=== PATIENT | female | born 1965 | race Hispanic/Latino ===

== ENCOUNTER 2018-09-12 00:51 | Emergency (ER) | payer OTHER ==
[2018-09-12] MEDS ORDERED: ONDANSETRON ODT 4 MG TAB ONE (01:53)
[2018-09-12] MEDS ORDERED: DEXAMETHASONE SOD PHOSPHATE 10MG/ML 1ML VIAL ONE (01:53)
[2018-09-12] MEDS ORDERED: MORPHINE SULFATE 5 MG/ML VIAL ONE (01:54)
== END 2018-09-12 02:08 | disposition home or self-care (01) ==
LOC: EDH 00:51
CPT/HCPCS: 96372; J1100; J2270

== ENCOUNTER 2018-12-06 23:28 | Emergency (ER) | payer OTHER ==
[2018-12-06 23:57] LABS: BILIRUBIN,URINE Negative (NEGATIVE); COLOR,URINE Yellow (YELLOW); GLUCOSE, URINE (UA) Negative (NEGATIVE); KETONES,URINE Negative (NEGATIVE); LEUKOCYTE ESTERASE ,URINE Negative (NEGATIVE); NITRATE,URINE Negative (NEGATIVE); OCCULT BLOOD,URINE Large (NEGATIVE); PH,URINE 6.5 (5.0-8.0); PROTEIN,URINE Negative (NEGATIVE); UROBILINOGEN,URINE 0.2 mg/dL (0.2-1.0)
[2018-12-06 23:59] LABS: APPEARANCE,URINE SLIGHTLY CLOUDY (CLEAR)
[2018-12-07 00:04] LABS: BACTERIA,URINE Few /HPF (None Seen); SQUAMOUS EPITHELIAL CELL,UR 0-2 /HPF (0-2); WBC,URINE 0-1 /HPF (0-1)
[2018-12-07 00:26] LABS: BASOPHILS % (AUTO) 0.9 % (0.0-5.0); CREATININE 0.8 mg/dL (0.5-1.5); EOSINOPHILS % (AUTO) 0.4 % (0.0-8.0); HEMATOCRIT 40.7 % (36-48); LYMPHOCYTES % (AUTO) 16.3 % (21.0-51.0); MEAN CORPUSCULAR HGB CONC 33.3 g/dL (32.0-36.0); MEAN CORPUSCULAR VOLUME 96.2 fL (79-99); MONOCYTES % (AUTO) 9.1 % (3.0-13.0); NEUTROPHILS % (AUTO) 73.3 % (40.0-77.0); PLATELET COUNT (AUTO) 308 K/uL (130-400); POTASSIUM 3.1 mmol/L (3.5-5.1); RED BLOOD CELL COUNT(AUTO) 4.23 MIL/uL (4.00-5.50); RED CELL DISTRIBUTION WIDTH 13.1 % (11.0-15.5); WHITE BLOOD COUNT (AUTO) 11.4 K/uL (4.8-10.8)
[2018-12-07 00:32] LABS: BILIRUBIN,TOTAL 0.4 mg/dL (0.2-1.0)
[2018-12-07] MEDS ORDERED: FENTANYL CITRATE PF 50 MCG/1 ML 2ML VIAL ONE (01:06)
[2018-12-07] MEDS ORDERED: KETOROLAC TROMETHAMINE 30MG/ML ONE (02:09)
[2018-12-07] MEDS ORDERED: TAMSULOSIN HCL 0.4 MG CAP.ER.24H ONE (02:37)
[2018-12-07] MEDS ORDERED: POTASSIUM CHLORIDE 10% ELIXIR 20 MEQ/15 ML UDCUP ONE (02:47)
== END 2018-12-07 02:50 | disposition home or self-care (01) ==
LOC: EDH 23:28
DX: N20.2 Calculus of kidney with calculus of ureter (principal); E87.6 Hypokalemia; J45.909 Unspecified asthma, uncomplicated; M19.90 Unspecified osteoarthritis, unspecified site; E03.9 Hypothyroidism, unspecified; Z90.49 Acquired absence of other specified parts of digestive tract; Z79.899 Other long term (current) drug therapy
CPT/HCPCS: 36415; 74176; 80053; 81001; 83690; 85025; 96374; 96375; 99285; J1885; J3010

== ENCOUNTER 2019-02-25 04:12 | Emergency (ER) | payer OTHER ==
[2019-02-25] MEDS ORDERED: METOCLOPRAMIDE 10 MG/2 ML VIAL ONE (04:44)
[2019-02-25] MEDS ORDERED: SODIUM CHLORIDE 0.9% 1000ML 1,000 ML IV ONE (04:45)
[2019-02-25] MEDS ORDERED: DiphenhydrAMINE HCL 50 MG/ML VIAL ONE (05:27)
[2019-02-25 05:46] LABS: BASOPHILS % (AUTO) 0.4 % (0.0-5.0); EOSINOPHILS % (AUTO) 0.6 % (0.0-8.0); HEMATOCRIT 45.1 % (36-48); LYMPHOCYTES % (AUTO) 21.4 % (21.0-51.0); MEAN CORPUSCULAR HEMOGLOBIN 32.2 pg (27.0-33.0); MEAN CORPUSCULAR HGB CONC 33.6 g/dL (32.0-36.0); MEAN CORPUSCULAR VOLUME 95.8 fL (79-99); MONOCYTES % (AUTO) 10.1 % (3.0-13.0); NEUTROPHILS % (AUTO) 67.5 % (40.0-77.0); NUCLEATED RED BLOOD CELLS 0.1 % (0.0-0.19); PLATELET COUNT (AUTO) 316 K/uL (130-400); RED CELL DISTRIBUTION WIDTH 13.3 % (11.0-15.5); WHITE BLOOD COUNT (AUTO) 10.8 K/uL (4.8-10.8)
[2019-02-25] MEDS ORDERED: KETOROLAC TROMETHAMINE 15MG/ML ONE (05:56)
[2019-02-25 05:57] LABS: CREATININE 0.7 mg/dL (0.5-1.5); POTASSIUM 3.6 mmol/L (3.5-5.1)
[2019-02-25 06:39] LABS: APPEARANCE,URINE CLEAR (CLEAR); BILIRUBIN,URINE NEGATIVE (NEGATIVE); COLOR,URINE YELLOW (YELLOW); GLUCOSE, URINE (UA) NEGATIVE (NEGATIVE); KETONES,URINE 5 mg/dL (NEGATIVE); LEUKOCYTE ESTERASE ,URINE NEGATIVE (NEGATIVE); NITRATE,URINE NEGATIVE (NEGATIVE); OCCULT BLOOD,URINE NEGATIVE (NEGATIVE); PH,URINE 7.5 (5.0-8.0); PROTEIN,URINE NEGATIVE (NEGATIVE); UROBILINOGEN,URINE 0.2 mg/dL (0.2-1.0)
[2019-02-25 06:48] LABS: AMPHET/METH SCREEN,URINE NEGATIVE (NEGATIVE); BARBITURATE SCREEN, URINE POSITIVE (NEGATIVE); BENZODIAZEPINES SCREEN,URINE NEGATIVE (NEGATIVE); CANNABINOID SCREEN,URINE NEGATIVE (NEGATIVE); COCAINE SCREEN,URINE NEGATIVE (NEGATIVE); OPIATE SCREEN,URINE NEGATIVE (NEGATIVE); PHENCYCLIDINE SCREEN,URINE NEGATIVE (NEGATIVE)
[2019-02-25 06:51] LABS: BACTERIA,URINE Few /HPF (None Seen); RBC,URINE 0-1 /HPF (0-1); WBC,URINE 0-1 /HPF (0-1)
== END 2019-02-25 07:01 | disposition home or self-care (01) ==
LOC: EDH 04:12
DX: G43.909 Migraine, unspecified, not intractable, without status migrainosus (principal); J45.909 Unspecified asthma, uncomplicated; E03.9 Hypothyroidism, unspecified; Z90.49 Acquired absence of other specified parts of digestive tract; Z88.1 Allergy status to other antibiotic agents; Z79.899 Other long term (current) drug therapy
CPT/HCPCS: 36415; 70450; 80048; 80305; 81001; 84443; 85025; 96374; 96375; 99285; J1200; J1885; J2765; J7030

== ENCOUNTER → 2020-01-11 | Outpatient (CLI) | payer OTHER | END | disposition home or self-care (01) | LOC: RAH 01-10 10:44 | PROVIDERS: ATTEND Physical Medicine & Rehabilitation | DX: M47.816 Spondylosis without myelopathy or radiculopathy, lumbar region (principal); M47.815 Spondylosis without myelopathy or radiculopathy, thoracolumbar region; M48.061 Spinal stenosis, lumbar region without neurogenic claudication; M48.05 Spinal stenosis, thoracolumbar region; Z90.49 Acquired absence of other specified parts of digestive tract | CPT/HCPCS: 72082; 72110 ==

== ENCOUNTER 2021-11-13 07:47 | Inpatient (IN) | payer BC, OTHER ==
[~2021-11-13] VITALS: Ht 157.5 cm; Wt 38.9 kg
[2021-11-13 08:16] LABS: BASOPHILS % (AUTO) 0.4 % (0.0-5.0); HEMATOCRIT 36.6 % (36-48); MEAN CORPUSCULAR HEMOGLOBIN 32.8 pg (27.0-33.0); MEAN CORPUSCULAR VOLUME 93.8 fL (79-99); MONOCYTES % (AUTO) 12.4 % (3.0-13.0); NEUTROPHILS % (AUTO) 71.6 % (40.0-77.0); PLATELET COUNT (AUTO) 214 K/uL (130-400); RED CELL DISTRIBUTION WIDTH 12.6 % (11.0-15.5); WHITE BLOOD COUNT (AUTO) 5.3 K/uL (4.8-10.8)
[2021-11-13] MEDS ORDERED: 0.9%NACL 1000ML 1,000 ML IV SCH (08:30)
[2021-11-13 08:49] LABS: ALBUMIN 3.2 g/dL (3.5-5.0); BILIRUBIN,TOTAL 0.7 mg/dL (0.2-1.0); CREATININE 0.4 mg/dL (0.5-1.5); MAGNESIUM 1.7 mg/dL (1.80-2.40); POTASSIUM 3.3 mmol/L (3.5-5.1); THYROID STIMULATING HORMONE 0.05 uIU/mL (0.36-3.74); TOTAL PROTEIN, SERUM 7.4 g/dL (6.0-8.3)
[2021-11-13] MEDS ORDERED: FOLIC ACID IV SCH ×5 (09:00)
[2021-11-13] MEDS ORDERED: [UNRECOGNIZED DRUG - OTHER] IV SCH ×5 (09:00)
[2021-11-13] MEDS ORDERED: THIAMINE HCL IV SCH ×5 (09:00)
[2021-11-13] MEDS ORDERED: M V I IV SCH ×5 (09:00)
[2021-11-13 09:13] LABS: APPEARANCE,URINE Clear (CLEAR); BILIRUBIN,URINE Negative (NEGATIVE); COLOR,URINE Dark Yellow (YELLOW); GLUCOSE, URINE (UA) Negative (NEGATIVE); KETONES,URINE 40 mg/dL (NEGATIVE); LEUKOCYTE ESTERASE ,URINE Trace (NEGATIVE); NITRATE,URINE Negative (NEGATIVE); OCCULT BLOOD,URINE Negative (NEGATIVE); PROTEIN,URINE Trace mg/dL (NEGATIVE)
[2021-11-13 09:15] LABS: B-TYPE NATRIURETIC PEPTIDE 12 pg/mL (0-100)
[2021-11-13 09:30] LABS: RBC,URINE 0-1 /HPF (0-1)
[2021-11-13 09:31] LABS: BACTERIA,URINE Rare /HPF (None Seen); SQUAMOUS EPITHELIAL CELL,UR Rare /HPF (0-2)
[2021-11-13 09:56] LABS: AMPHET/METH SCREEN,URINE NEGATIVE (NEGATIVE); BARBITURATE SCREEN, URINE NEGATIVE (NEGATIVE); BENZODIAZEPINES SCREEN,URINE NEGATIVE (NEGATIVE); CANNABINOID SCREEN,URINE NEGATIVE (NEGATIVE); COCAINE SCREEN,URINE NEGATIVE (NEGATIVE); OPIATE SCREEN,URINE NEGATIVE (NEGATIVE); PHENCYCLIDINE SCREEN,URINE NEGATIVE (NEGATIVE)
[2021-11-13] MEDS ORDERED: IOHEXOL-350 75 ML VIAL IV ONE (10:14)
[2021-11-13] MEDS ORDERED: LEVO75CA5 PO (11:26)
[2021-11-13 22:50] VITALS: BP 129/81
[2021-11-14] MEDS: KCL 20 MEQ ERTAB PO PRN (01:55)
[2021-11-14] MEDS: ACETAMINOPHEN 325 MG TAB PO PRN (03:39)
[2021-11-14 04:00] VITALS: BP 104/66
[2021-11-14 05:00] LABS: BASOPHILS % (AUTO) 0.2 % (0.0-5.0); HEMATOCRIT 31.9 % (36-48); LYMPHOCYTES % (AUTO) 16.3 % (21.0-51.0); MEAN CORPUSCULAR HEMOGLOBIN 31.8 pg (27.0-33.0); MEAN CORPUSCULAR HGB CONC 33.5 g/dL (32.0-36.0); MEAN CORPUSCULAR VOLUME 94.7 fL (79-99); MONOCYTES % (AUTO) 12.7 % (3.0-13.0); PLATELET COUNT (AUTO) 209 K/uL (130-400); RED BLOOD CELL COUNT(AUTO) 3.37 MIL/uL (4.00-5.50); RED CELL DISTRIBUTION WIDTH 12.8 % (11.0-15.5); WHITE BLOOD COUNT (AUTO) 4.8 K/uL (4.8-10.8)
[2021-11-14 05:25] LABS: ALBUMIN 2.6 g/dL (3.5-5.0); BILIRUBIN,TOTAL 0.7 mg/dL (0.2-1.0); CREATININE 0.3 mg/dL (0.5-1.5); MAGNESIUM 1.5 mg/dL (1.80-2.40); TOTAL PROTEIN, SERUM 6.2 g/dL (6.0-8.3)
[2021-11-14 05:26] LABS: POTASSIUM 2.9 mmol/L (3.5-5.1)
[2021-11-14] MEDS: POTASSIUM CHLORIDE 20MEQ/100ML 100 ML IV PRN (06:48)
[2021-11-14] MEDS: LIDOCAINE HCL-MPF 1% 2ML VIAL IJ PRN (06:48)
[2021-11-14 07:30] VITALS: BP 107/72
[2021-11-14] MEDS ORDERED: GADOTERATE MEGLUMINE 10 MMOL/20 ML VIAL IV ONE (07:49)
[2021-11-14] MEDS: PANTOPRAZOLE 40 MG TAB DR PO SCH (08:42)
[2021-11-14] MEDS: ENOXAPARIN SODIUM 40 MG/0.4 ML SYRINGE SQ SCH (08:43)
[2021-11-14 11:00] VITALS: BP 115/74
[2021-11-14] MEDS: POTASSIUM CHLORIDE 10% ELIXIR 20 MEQ/15 ML UDCUP PO PRN (11:16)
[2021-11-14 16:00] VITALS: BP 110/73
[2021-11-14 19:00] VITALS: BP 127/58
[2021-11-14 19:58] LABS: GLUCOSE, CSF 29 mg/dL (40-70)
[2021-11-14 20:15] LABS: TOTAL PROTEIN, CSF 161 mg/dL (15-45)
[2021-11-14 21:17] LABS: APPEARANCE,CSF CLEAR (CLEAR); COLOR,CSF COLORLESS (COLORLESS); CSF TOTAL VOLUME 1.5 mL; CSF TUBE NUMBER TUBE NO.1; WHITE BLOOD CELL1,CSF 2 CMM (0-5)
[2021-11-14 21:18] LABS: APPEARANCE2,CSF CLEAR (CLEAR); COLOR2,CSF COLORLESS (COLORLESS); CSF 2ND TUBE NUMBER TUBE NO.2; RED BLOOD CELL1,CSF 232 CMM (0-0)
[2021-11-15] VITALS: BP 112/80
[2021-11-15] MEDS: ACETAMINOPHEN 325 MG TAB PO PRN (01:31)
[2021-11-15 04:00] VITALS: BP 104/69
[2021-11-15 08:00] VITALS: BP 97/70
[2021-11-15 08:39] LABS: BASOPHILS % (AUTO) 0.4 % (0.0-5.0); EOSINOPHILS % (AUTO) 0.4 % (0.0-8.0); HEMATOCRIT 33.7 % (36-48); LYMPHOCYTES % (AUTO) 19.6 % (21.0-51.0); MEAN CORPUSCULAR HEMOGLOBIN 32.7 pg (27.0-33.0); MEAN CORPUSCULAR HGB CONC 33.8 g/dL (32.0-36.0); MEAN CORPUSCULAR VOLUME 96.6 fL (79-99); MONOCYTES % (AUTO) 11.8 % (3.0-13.0); NEUTROPHILS % (AUTO) 67.2 % (40.0-77.0); PLATELET COUNT (AUTO) 243 K/uL (130-400); RED BLOOD CELL COUNT(AUTO) 3.49 MIL/uL (4.00-5.50); WHITE BLOOD COUNT (AUTO) 5.2 K/uL (4.8-10.8)
[2021-11-15 09:14] LABS: CREATININE 0.4 mg/dL (0.5-1.5); MAGNESIUM 1.7 mg/dL (1.80-2.40); PHOSPHORUS 2.5 mg/dL (2.5-4.9); POTASSIUM 3.7 mmol/L (3.5-5.1)
[2021-11-15] MEDS: PANTOPRAZOLE 40 MG TAB DR PO SCH (09:40)
[2021-11-15] MEDS: ENOXAPARIN SODIUM 40 MG/0.4 ML SYRINGE SQ SCH (09:40)
[2021-11-15] MEDS: MAGNESIUM OXIDE 400 MG TABLET PO SCH (09:40)
[2021-11-15] MEDS: CYANOCOBALAMIN (VITAMIN B-12) 1,000 MCG TABLET PO SCH (09:40)
[2021-11-15] MEDS: DRONABINOL 2.5 MG CAP PO SCH (09:40)
[2021-11-15 09:44] LABS: ERYTHROCYTE SEDIMENTATION RATE 30 MM/HR (0-30)
[2021-11-15 11:49] VITALS: BP 107/73
[2021-11-15 15:38] VITALS: BP 115/82
[2021-11-15] MEDS ORDERED: IOHEXOL 350 MG/ML 100ML INFUS..BTL IV ONE (19:02)
[2021-11-15 20:00] VITALS: BP 124/84
[2021-11-16] VITALS: BP_SYST 116; BP_SYST 121; BP_DIAS 78; BP_DIAS 91
[2021-11-16] MEDS: ACETAMINOPHEN 325 MG TAB PO PRN (03:57)
[2021-11-16 04:00] VITALS: BP 97/66
[2021-11-16 05:19] LABS: BASOPHILS % (AUTO) 0.5 % (0.0-5.0); EOSINOPHILS % (AUTO) 0.4 % (0.0-8.0); HEMATOCRIT 33.2 % (36-48); LYMPHOCYTES % (AUTO) 14.8 % (21.0-51.0); MEAN CORPUSCULAR HEMOGLOBIN 31.7 pg (27.0-33.0); MEAN CORPUSCULAR HGB CONC 33.7 g/dL (32.0-36.0); MEAN CORPUSCULAR VOLUME 94.1 fL (79-99); MONOCYTES % (AUTO) 11.4 % (3.0-13.0); PLATELET COUNT (AUTO) 241 K/uL (130-400); RED BLOOD CELL COUNT(AUTO) 3.53 MIL/uL (4.00-5.50); WHITE BLOOD COUNT (AUTO) 5.6 K/uL (4.8-10.8)
[2021-11-16 05:39] LABS: CREATININE 0.4 mg/dL (0.5-1.5); MAGNESIUM 1.5 mg/dL (1.80-2.40); POTASSIUM 3.2 mmol/L (3.5-5.1)
[2021-11-16] MEDS: POTASSIUM CHLORIDE 10% ELIXIR 20 MEQ/15 ML UDCUP PO PRN ×2 (05:47→10:56)
[2021-11-16] MEDS: MAGNESIUM 2GM PREMIX 50ML 50 ML IV SCH (05:47)
[2021-11-16] MEDS ORDERED: LEVOTHYROXINE 50 MCG TABLET PO SCH (06:00)
[2021-11-16] MEDS ORDERED: LEVOTHYROXINE 75 MCG TABLET PO SCH (07:30)
[2021-11-16 08:00] VITALS: BP 116/81
[2021-11-16] MEDS: MAGNESIUM OXIDE 400 MG TABLET PO SCH (10:55)
[2021-11-16] MEDS: DRONABINOL 2.5 MG CAP PO SCH (10:55)
[2021-11-16] MEDS: PANTOPRAZOLE 40 MG TAB DR PO SCH (10:55)
[2021-11-16] MEDS: CYANOCOBALAMIN (VITAMIN B-12) 1,000 MCG TABLET PO SCH (10:55)
[2021-11-16] MEDS: ENOXAPARIN SODIUM 40 MG/0.4 ML SYRINGE SQ SCH (10:56)
[2021-11-16 12:00] VITALS: BP 101/70
[2021-11-16 16:00] VITALS: BP 104/68
[2021-11-16 20:00] VITALS: BP 117/81
[2021-11-17] VITALS: BP 121/78
[2021-11-17 04:00] VITALS: BP 115/75
[2021-11-17 04:38] LABS: BASOPHILS % (AUTO) 0.4 % (0.0-5.0); EOSINOPHILS % (AUTO) 1.3 % (0.0-8.0); HEMATOCRIT 32.6 % (36-48); LYMPHOCYTES % (AUTO) 20.3 % (21.0-51.0); MEAN CORPUSCULAR HEMOGLOBIN 31.8 pg (27.0-33.0); MEAN CORPUSCULAR HGB CONC 33.1 g/dL (32.0-36.0); MEAN CORPUSCULAR VOLUME 95.9 fL (79-99); MONOCYTES % (AUTO) 11.7 % (3.0-13.0); NEUTROPHILS % (AUTO) 65.3 % (40.0-77.0); PLATELET COUNT (AUTO) 236 K/uL (130-400); RED CELL DISTRIBUTION WIDTH 12.9 % (11.0-15.5); WHITE BLOOD COUNT (AUTO) 5.2 K/uL (4.8-10.8)
[2021-11-17 04:45] LABS: ALBUMIN 2.6 g/dL (3.5-5.0); BILIRUBIN,TOTAL 0.5 mg/dL (0.2-1.0); CREATININE 0.3 mg/dL (0.5-1.5); MAGNESIUM 1.8 mg/dL (1.80-2.40); TOTAL PROTEIN, SERUM 6.3 g/dL (6.0-8.3)
[2021-11-17] MEDS: MAGNESIUM 2GM PREMIX 50ML 50 ML IV SCH (05:17)
[2021-11-17 08:00] VITALS: BP 113/75
[2021-11-17] MEDS: ENOXAPARIN SODIUM 40 MG/0.4 ML SYRINGE SQ SCH (09:18)
[2021-11-17] MEDS: CYANOCOBALAMIN (VITAMIN B-12) 1,000 MCG TABLET PO SCH (09:19)
[2021-11-17] MEDS: PANTOPRAZOLE 40 MG TAB DR PO SCH (09:19)
[2021-11-17] MEDS: MAGNESIUM OXIDE 400 MG TABLET PO SCH (09:19)
[2021-11-17] MEDS: DRONABINOL 2.5 MG CAP PO SCH (09:19)
[2021-11-17 11:50] VITALS: BP 96/70
[2021-11-17 16:00] VITALS: BP 114/77
[2021-11-17 20:00] VITALS: BP 118/92
[2021-11-18] VITALS (8 sets, daily range): BP systolic 94–150; BP diastolic 66–89
[2021-11-18 04:56] LABS: BASOPHILS % (AUTO) 0.3 % (0.0-5.0); EOSINOPHILS % (AUTO) 1.4 % (0.0-8.0); HEMATOCRIT 32.5 % (36-48); LYMPHOCYTES % (AUTO) 21.8 % (21.0-51.0); MEAN CORPUSCULAR HEMOGLOBIN 32.5 pg (27.0-33.0); MEAN CORPUSCULAR HGB CONC 33.5 g/dL (32.0-36.0); MONOCYTES % (AUTO) 13.6 % (3.0-13.0); NEUTROPHILS % (AUTO) 61.9 % (40.0-77.0); PLATELET COUNT (AUTO) 247 K/uL (130-400); RED BLOOD CELL COUNT(AUTO) 3.35 MIL/uL (4.00-5.50); RED CELL DISTRIBUTION WIDTH 12.9 % (11.0-15.5); WHITE BLOOD COUNT (AUTO) 5.8 K/uL (4.8-10.8)
[2021-11-18 05:13] LABS: ALBUMIN 2.6 g/dL (3.5-5.0); BILIRUBIN,TOTAL 0.5 mg/dL (0.2-1.0); CREATININE 0.4 mg/dL (0.5-1.5); MAGNESIUM 2.1 mg/dL (1.80-2.40); POTASSIUM 3.6 mmol/L (3.5-5.1); TOTAL PROTEIN, SERUM 6.4 g/dL (6.0-8.3)
[2021-11-18] MEDS: ENOXAPARIN SODIUM 40 MG/0.4 ML SYRINGE SQ SCH (08:02)
[2021-11-18] MEDS: CYANOCOBALAMIN (VITAMIN B-12) 1,000 MCG TABLET PO SCH (08:30)
[2021-11-18] MEDS: MAGNESIUM OXIDE 400 MG TABLET PO SCH (08:30)
[2021-11-18] MEDS: PANTOPRAZOLE 40 MG TAB DR PO SCH (08:30)
[2021-11-18] MEDS: DRONABINOL 2.5 MG CAP PO SCH (09:45)
[2021-11-18] MEDS ORDERED: GADOTERATE MEGLUMINE 10 MMOL/20 ML VIAL IV ONE (13:33)
[2021-11-19] VITALS (13 sets, daily range): BP systolic 94–169; BP diastolic 67–91
[2021-11-19 03:54] LABS: HEMATOCRIT 32.2 % (36-48); MEAN CORPUSCULAR HEMOGLOBIN 32.1 pg (27.0-33.0); MEAN CORPUSCULAR HGB CONC 33.5 g/dL (32.0-36.0); MEAN CORPUSCULAR VOLUME 95.8 fL (79-99); RED BLOOD CELL COUNT(AUTO) 3.36 MIL/uL (4.00-5.50); RED CELL DISTRIBUTION WIDTH 12.9 % (11.0-15.5); WHITE BLOOD COUNT (AUTO) 5.2 K/uL (4.8-10.8)
[2021-11-19 04:11] LABS: CREATININE 0.4 mg/dL (0.5-1.5); POTASSIUM 3.1 mmol/L (3.5-5.1)
[2021-11-19] MEDS: POTASSIUM CHLORIDE 20MEQ/100ML 100 ML IV PRN ×2 (05:01→08:12)
[2021-11-19] MEDS: LIDOCAINE HCL-MPF 1% 2ML VIAL IJ PRN ×2 (05:02→08:12)
[2021-11-19] MEDS: ENOXAPARIN SODIUM 40 MG/0.4 ML SYRINGE SQ SCH (07:25)
[2021-11-19] MEDS: MAGNESIUM OXIDE 400 MG TABLET PO SCH ×2 (08:03→10:13)
[2021-11-19] MEDS: DRONABINOL 2.5 MG CAP PO SCH ×2 (08:03→10:13)
[2021-11-19] MEDS: CYANOCOBALAMIN (VITAMIN B-12) 1,000 MCG TABLET PO SCH (08:06)
[2021-11-19] MEDS: PANTOPRAZOLE 40 MG TAB DR PO SCH (08:06)
[2021-11-19 08:45] LABS: INR 1.15 (0.85-1.15); PROTHROMBIN TIME 12.4 SEC (9.6-11.6)
[2021-11-19 08:46] LABS: PARTIAL THROMBOPLASTIN TIME 31.5 SEC (26.3-35.5)
[2021-11-19] MEDS: ACETAMINOPHEN 325 MG TAB PO PRN (10:12)
[2021-11-19] MEDS ORDERED: IOPAMIDOL 10 ML VIAL ONE (15:09)
[2021-11-20 03:08] VITALS: BP 149/96
[2021-11-20 05:18] LABS: HEMATOCRIT 32.4 % (36-48); MEAN CORPUSCULAR HEMOGLOBIN 33.2 pg (27.0-33.0); MEAN CORPUSCULAR HGB CONC 34.9 g/dL (32.0-36.0); MEAN CORPUSCULAR VOLUME 95.3 fL (79-99); RED BLOOD CELL COUNT(AUTO) 3.4 MIL/uL (4.00-5.50); RED CELL DISTRIBUTION WIDTH 12.9 % (11.0-15.5); WHITE BLOOD COUNT (AUTO) 4.5 K/uL (4.8-10.8)
[2021-11-20 05:31] LABS: CREATININE 0.4 mg/dL (0.5-1.5); POTASSIUM 3.8 mmol/L (3.5-5.1)
[2021-11-20 08:10] VITALS: BP 113/82
[2021-11-20] MEDS: MAGNESIUM OXIDE 400 MG TABLET PO SCH (08:49)
[2021-11-20] MEDS: PANTOPRAZOLE 40 MG TAB DR PO SCH (08:49)
[2021-11-20] MEDS: ENOXAPARIN SODIUM 40 MG/0.4 ML SYRINGE SQ SCH (08:49)
[2021-11-20] MEDS: DRONABINOL 2.5 MG CAP PO SCH (08:49)
[2021-11-20 12:17] VITALS: BP 107/76
[2021-11-20] MEDS: ACETAMINOPHEN 325 MG TAB PO PRN (14:27)
[2021-11-20 17:37] VITALS: BP 101/66
[2021-11-20 20:00] VITALS: BP 135/91
[2021-11-21] VITALS: BP 110/77
[2021-11-21 04:00] VITALS: BP 122/86
[2021-11-21 05:03] LABS: HEMATOCRIT 33.5 % (36-48); MEAN CORPUSCULAR HEMOGLOBIN 31.4 pg (27.0-33.0); MEAN CORPUSCULAR HGB CONC 33.1 g/dL (32.0-36.0); MEAN CORPUSCULAR VOLUME 94.9 fL (79-99); RED BLOOD CELL COUNT(AUTO) 3.53 MIL/uL (4.00-5.50); RED CELL DISTRIBUTION WIDTH 12.7 % (11.0-15.5); WHITE BLOOD COUNT (AUTO) 4.7 K/uL (4.8-10.8)
[2021-11-21 05:08] LABS: ALBUMIN 2.8 g/dL (3.5-5.0); CREATININE 0.3 mg/dL (0.5-1.5); MAGNESIUM 1.9 mg/dL (1.80-2.40); POTASSIUM 3.8 mmol/L (3.5-5.1)
[2021-11-21 08:15] VITALS: BP 102/79
[2021-11-21] MEDS: MAGNESIUM OXIDE 400 MG TABLET PO SCH (08:49)
[2021-11-21] MEDS: PANTOPRAZOLE 40 MG TAB DR PO SCH (08:49)
[2021-11-21] MEDS: ENOXAPARIN SODIUM 40 MG/0.4 ML SYRINGE SQ SCH (08:49)
[2021-11-21] MEDS: DRONABINOL 2.5 MG CAP PO SCH (08:50)
[2021-11-21] MEDS: ACETAMINOPHEN 325 MG TAB PO PRN (08:54)
[2021-11-21 12:15] VITALS: BP 99/71
[2021-11-21 16:55] VITALS: BP 156/106
[2021-11-21 20:00] VITALS: BP 122/90
[2021-11-22] VITALS: BP 115/86
[2021-11-22 04:00] VITALS: BP 112/76
[2021-11-22 05:22] LABS: HEMATOCRIT 34.8 % (36-48); MEAN CORPUSCULAR HEMOGLOBIN 32.4 pg (27.0-33.0); MEAN CORPUSCULAR HGB CONC 33.9 g/dL (32.0-36.0); MEAN CORPUSCULAR VOLUME 95.6 fL (79-99); RED BLOOD CELL COUNT(AUTO) 3.64 MIL/uL (4.00-5.50); RED CELL DISTRIBUTION WIDTH 12.7 % (11.0-15.5); WHITE BLOOD COUNT (AUTO) 5.8 K/uL (4.8-10.8)
[2021-11-22 05:42] LABS: CREATININE 0.3 mg/dL (0.5-1.5); POTASSIUM 3.7 mmol/L (3.5-5.1)
[2021-11-22 07:30] VITALS: BP 95/74
[2021-11-22] MEDS: MAGNESIUM OXIDE 400 MG TABLET PO SCH (09:00)
[2021-11-22] MEDS: ENOXAPARIN SODIUM 40 MG/0.4 ML SYRINGE SQ SCH (09:00)
[2021-11-22] MEDS: PANTOPRAZOLE 40 MG TAB DR PO SCH (09:00)
[2021-11-22 11:00] VITALS: BP 125/99
[2021-11-22 16:00] VITALS: BP 102/66
[2021-11-22 20:00] VITALS: BP 129/88
[2021-11-23] VITALS: BP 122/88
[2021-11-23 04:00] VITALS: BP 107/75
[2021-11-23 05:09] LABS: HEMATOCRIT 35.8 % (36-48); MEAN CORPUSCULAR HEMOGLOBIN 31.6 pg (27.0-33.0); MEAN CORPUSCULAR VOLUME 95.7 fL (79-99); RED BLOOD CELL COUNT(AUTO) 3.74 MIL/uL (4.00-5.50); RED CELL DISTRIBUTION WIDTH 12.6 % (11.0-15.5); WHITE BLOOD COUNT (AUTO) 6.3 K/uL (4.8-10.8)
[2021-11-23 05:20] LABS: INR 1.15 (0.85-1.15); PROTHROMBIN TIME 12.4 SEC (9.6-11.6)
[2021-11-23 05:22] LABS: ALBUMIN 2.9 g/dL (3.5-5.0); CREATININE 0.5 mg/dL (0.5-1.5); POTASSIUM 3.8 mmol/L (3.5-5.1)
[2021-11-23 08:00] VITALS: BP 122/78
[2021-11-23] MEDS: MAGNESIUM OXIDE 400 MG TABLET PO SCH (08:51)
[2021-11-23] MEDS: POTASSIUM CHLORIDE 10% ELIXIR 20 MEQ/15 ML UDCUP PO PRN (08:51)
[2021-11-23] MEDS: ENOXAPARIN SODIUM 40 MG/0.4 ML SYRINGE SQ SCH (08:51)
[2021-11-23] MEDS: PANTOPRAZOLE 40 MG TAB DR PO SCH (08:51)
[2021-11-23] MEDS: KCL 20 MEQ ERTAB PO PRN (11:49)
[2021-11-23 12:00] VITALS: BP 95/63
[2021-11-23 16:00] VITALS: BP 108/65
[2021-11-23] MEDS ORDERED: CLINIMIX-E 5%AA /D15%W 2000ML 2,000 ML IV SCH (17:00)
[2021-11-23] MEDS ORDERED: PHARMACY COMMUNICATION MISC SCH (17:00)
[2021-11-23 20:02] VITALS: BP 98/65
[2021-11-24] VITALS: BP 96/73
[2021-11-24 04:00] VITALS: BP 91/64
[2021-11-24] MEDS: ACETAMINOPHEN 325 MG TAB PO PRN ×2 (04:25→15:17)
[2021-11-24 05:16] LABS: HEMATOCRIT 33.8 % (36-48); MEAN CORPUSCULAR HEMOGLOBIN 32.9 pg (27.0-33.0); MEAN CORPUSCULAR HGB CONC 34.6 g/dL (32.0-36.0); MEAN CORPUSCULAR VOLUME 94.9 fL (79-99); RED BLOOD CELL COUNT(AUTO) 3.56 MIL/uL (4.00-5.50); RED CELL DISTRIBUTION WIDTH 12.5 % (11.0-15.5); WHITE BLOOD COUNT (AUTO) 8.6 K/uL (4.8-10.8)
[2021-11-24 05:32] LABS: ALBUMIN 2.6 g/dL (3.5-5.0); BILIRUBIN,TOTAL 0.4 mg/dL (0.2-1.0); CREATININE 0.4 mg/dL (0.5-1.5); MAGNESIUM 1.8 mg/dL (1.80-2.40); PHOSPHORUS 1.7 mg/dL (2.5-4.9); POTASSIUM 3.3 mmol/L (3.5-5.1); TOTAL PROTEIN, SERUM 6.6 g/dL (6.0-8.3)
[2021-11-24] MEDS: KCL 20 MEQ ERTAB PO PRN ×2 (05:47→09:29)
[2021-11-24] MEDS: MAGNESIUM 2GM PREMIX 50ML 50 ML IV SCH (05:47)
[2021-11-24 07:00] VITALS: BP 103/64
[2021-11-24] MEDS: MAGNESIUM OXIDE 400 MG TABLET PO SCH (09:28)
[2021-11-24] MEDS: FAMOTIDINE 20MG TAB PO SCH (09:28)
[2021-11-24] MEDS: ENOXAPARIN SODIUM 40 MG/0.4 ML SYRINGE SQ SCH (09:29)
[2021-11-24 11:00] VITALS: BP 94/70
[2021-11-24 15:00] VITALS: BP 102/68
[2021-11-24] MEDS ORDERED: CLINIMIX-E 5%AA /D15%W 2000ML 2,000 ML IV SCH (16:30)
[2021-11-24 19:30] VITALS: BP 93/64
[2021-11-25] VITALS (7 sets, daily range): BP systolic 99–135; BP diastolic 68–87
[2021-11-25 06:12] LABS: ALBUMIN 2.5 g/dL (3.5-5.0); BILIRUBIN,TOTAL 0.3 mg/dL (0.2-1.0); CREATININE 0.3 mg/dL (0.5-1.5); MAGNESIUM 1.9 mg/dL (1.80-2.40); PHOSPHORUS 1.5 mg/dL (2.5-4.9); POTASSIUM 3.6 mmol/L (3.5-5.1); TOTAL PROTEIN, SERUM 6.3 g/dL (6.0-8.3)
[2021-11-25] MEDS: MAGNESIUM 2GM PREMIX 50ML 50 ML IV SCH (06:42)
[2021-11-25] MEDS: KCL 20 MEQ ERTAB PO PRN (06:42)
[2021-11-25] MEDS: PAROXETINE HCL 20 MG TABLET PO SCH (09:49)
[2021-11-25] MEDS: FAMOTIDINE 20MG TAB PO SCH (09:49)
[2021-11-25] MEDS: MAGNESIUM OXIDE 400 MG TABLET PO SCH (09:49)
[2021-11-25] MEDS: ENOXAPARIN SODIUM 40 MG/0.4 ML SYRINGE SQ SCH (09:50)
[2021-11-25] MEDS: ONDANSETRON 4MG INJ IVP PRN ×2 (11:30→19:24)
[2021-11-25] MEDS ORDERED: METOPROLOL TARTRATE 1 MG/ML 5ML VIAL IV PRN (17:00)
[2021-11-25] MEDS ORDERED: CLINIMIX-E 5%AA /D15%W 2000ML 2,000 ML IV SCH (18:00)
[2021-11-26] VITALS (27 sets, daily range): BP systolic 94–136; BP diastolic 65–94
[2021-11-26 05:18] LABS: BASOPHILS % (AUTO) 0.2 % (0.0-5.0); HEMATOCRIT 36.2 % (36-48); MEAN CORPUSCULAR HEMOGLOBIN 32.9 pg (27.0-33.0); MEAN CORPUSCULAR HGB CONC 34.5 g/dL (32.0-36.0); MEAN CORPUSCULAR VOLUME 95.3 fL (79-99); MONOCYTES % (AUTO) 5.4 % (3.0-13.0); NEUTROPHILS % (AUTO) 84.7 % (40.0-77.0); PLATELET COUNT (AUTO) 248 K/uL (130-400); RED CELL DISTRIBUTION WIDTH 12.7 % (11.0-15.5); WHITE BLOOD COUNT (AUTO) 10.8 K/uL (4.8-10.8)
[2021-11-26 05:40] LABS: ALBUMIN 2.6 g/dL (3.5-5.0); BILIRUBIN,TOTAL 0.3 mg/dL (0.2-1.0); CREATININE 0.4 mg/dL (0.5-1.5); POTASSIUM 3.6 mmol/L (3.5-5.1); TOTAL PROTEIN, SERUM 6.7 g/dL (6.0-8.3)
[2021-11-26] MEDS: MAGNESIUM OXIDE 400 MG TABLET PO SCH ×2 (09:00→15:52)
[2021-11-26] MEDS: FAMOTIDINE 20MG TAB PO SCH ×2 (09:00→15:53)
[2021-11-26] MEDS: ENOXAPARIN SODIUM 40 MG/0.4 ML SYRINGE SQ SCH (09:00)
[2021-11-26] MEDS: PAROXETINE HCL 20 MG TABLET PO SCH ×2 (09:00→15:52)
[2021-11-26] MEDS ORDERED: LACTATED RINGERS 1000ML 1,000 ML IV ONE (10:54)
[2021-11-26] MEDS ORDERED: 0.9%NACL 1000ML 1,000 ML IV ONE (11:27)
[2021-11-26] MEDS ORDERED: FENTANYL CITRATE PF 50 MCG/1 ML 2ML VIAL ONE (11:35)
[2021-11-26] MEDS ORDERED: MIDAZOLAM HCL 1 MG/ML 2ML VIAL ONE (11:35)
[2021-11-26] MEDS ORDERED: CEFAZOLIN SODIUM 1 GM VIAL ONE ×2 (11:38→11:56)
[2021-11-26] MEDS ORDERED: ALBUMIN (HUMAN) 5% 250 ML IV ONE (11:43)
[2021-11-26] MEDS ORDERED: VANCOMYCIN 1G VIAL ONE (11:56)
[2021-11-26] MEDS ORDERED: BUPIVACAINE/PF 0.25% 30ML VIAL IJ ONE (11:56)
[2021-11-26] MEDS ORDERED: TOBRAMYCIN SULFATE 40MG/1ML VIAL ONE (11:57)
[2021-11-26] MEDS ORDERED: BUPIVACAINE/EPI/PF 0.5% 30ML VIAL IJ ONE (11:57)
[2021-11-26] MEDS ORDERED: ARTIFICIAL TEARS 3.5 GM OINTMENT ONE (12:08)
[2021-11-26] MEDS ORDERED: THROMBIN-JMI 20000 UNIT KIT TP ONE (12:24)
[2021-11-26 16:39] LABS: CHOLESTEROL 126 mg/dL (<200); HDL CHOLESTEROL 40 mg/dL (35-85); LDL DIRECT 66 mg/dL (0-99); TRIGLYCERIDES 155 mg/dL (30-200)
[2021-11-26 16:40] LABS: HEMOGLOBIN A1C 5.8 % (4.0-6.0)
[2021-11-26] MEDS ORDERED: CLINIMIX-E 5%AA /D15%W 2000ML 2,000 ML IV SCH (21:30)
[2021-11-27] VITALS: BP 129/79
[2021-11-27] MEDS ORDERED: ASPIRIN 81MG CHEW TAB PO ONE
[2021-11-27] MEDS: NITROGLYCERIN 1GM OINT 1 INCH/1GM TD SCH ×4 (00:10→23:15)
[2021-11-27 04:00] VITALS: BP 122/76
[2021-11-27 05:34] LABS: BASOPHILS % (AUTO) 0.1 % (0.0-5.0); HEMATOCRIT 29.4 % (36-48); LYMPHOCYTES % (AUTO) 6.1 % (21.0-51.0); MEAN CORPUSCULAR HEMOGLOBIN 32.8 pg (27.0-33.0); MEAN CORPUSCULAR HGB CONC 33.3 g/dL (32.0-36.0); MEAN CORPUSCULAR VOLUME 98.3 fL (79-99); MONOCYTES % (AUTO) 3.8 % (3.0-13.0); NEUTROPHILS % (AUTO) 89.4 % (40.0-77.0); PLATELET COUNT (AUTO) 203 K/uL (130-400); RED BLOOD CELL COUNT(AUTO) 2.99 MIL/uL (4.00-5.50); RED CELL DISTRIBUTION WIDTH 12.8 % (11.0-15.5); WHITE BLOOD COUNT (AUTO) 9.9 K/uL (4.8-10.8)
[2021-11-27 05:46] LABS: ALBUMIN 2.4 g/dL (3.5-5.0); BILIRUBIN,TOTAL 0.3 mg/dL (0.2-1.0); CREATININE 0.4 mg/dL (0.5-1.5); MAGNESIUM 1.9 mg/dL (1.80-2.40); PHOSPHORUS 2.1 mg/dL (2.5-4.9); POTASSIUM 4.2 mmol/L (3.5-5.1); TOTAL PROTEIN, SERUM 5.9 g/dL (6.0-8.3)
[2021-11-27 08:00] VITALS: BP 127/77
[2021-11-27] MEDS: ASPIRIN 81MG CHEW TAB PO SCH (09:20)
[2021-11-27] MEDS: ENOXAPARIN SODIUM 40 MG/0.4 ML SYRINGE SQ SCH (09:22)
[2021-11-27] MEDS: ACETAMINOPHEN 325 MG TAB PO PRN (10:08)
[2021-11-27 12:00] VITALS: BP 124/77
[2021-11-27 16:00] VITALS: BP 121/75
[2021-11-27 19:30] VITALS: BP 115/78
[2021-11-28 00:35] VITALS: BP 112/73
[2021-11-28 04:00] VITALS: BP 119/76
[2021-11-28] MEDS: NITROGLYCERIN 1GM OINT 1 INCH/1GM TD SCH ×3 (06:55→22:00)
[2021-11-28 08:30] VITALS: BP 141/86
[2021-11-28] MEDS: PAROXETINE HCL 20 MG TABLET PO SCH (10:05)
[2021-11-28] MEDS: FAMOTIDINE 20MG TAB PO SCH (10:05)
[2021-11-28] MEDS: MAGNESIUM OXIDE 400 MG TABLET PO SCH (10:05)
[2021-11-28] MEDS: ASPIRIN 81MG CHEW TAB PO SCH (10:05)
[2021-11-28] MEDS: ENOXAPARIN SODIUM 40 MG/0.4 ML SYRINGE SQ SCH (10:06)
[2021-11-28] MEDS: ACETAMINOPHEN 325 MG TAB PO PRN ×2 (11:30→16:50)
[2021-11-28 12:01] VITALS: BP 144/89
[2021-11-28 16:30] VITALS: BP 128/87
[2021-11-28 20:00] VITALS: BP 108/66
[2021-11-29] VITALS (49 sets, daily range): BP systolic 82–127; BP diastolic 52–90
[2021-11-29] MEDS: ONDANSETRON 4MG INJ IVP PRN (02:25)
[2021-11-29] MEDS: ACETAMINOPHEN 325 MG TAB PO PRN (02:25)
[2021-11-29] MEDS ORDERED: ACETAMINOPHEN 650 MG SUPPOSITORY RC SCH (06:00)
[2021-11-29] MEDS: NITROGLYCERIN 1GM OINT 1 INCH/1GM TD SCH ×3 (06:00→20:47)
[2021-11-29] MEDS ORDERED: ACETAMINOPHEN 650 MG SUPPOSITORY RC ONE (06:09)
[2021-11-29] MEDS ORDERED: NOREPINEPHRIN 4MG/NS 250ML 250 ML IV PRN (08:30)
[2021-11-29 08:52] LABS: LYMPHOCYTES % (AUTO) 4.2 % (21.0-51.0); MEAN CORPUSCULAR HEMOGLOBIN 31.5 pg (27.0-33.0); MEAN CORPUSCULAR HGB CONC 31.9 g/dL (32.0-36.0); MEAN CORPUSCULAR VOLUME 98.9 fL (79-99); MONOCYTES % (AUTO) 0.5 % (3.0-13.0); NEUTROPHILS % (AUTO) 92.5 % (40.0-77.0); PLATELET COUNT (AUTO) 119 K/uL (130-400); RED BLOOD CELL COUNT(AUTO) 2.73 MIL/uL (4.00-5.50); RED CELL DISTRIBUTION WIDTH 13.2 % (11.0-15.5); WHITE BLOOD COUNT (AUTO) 2.2 K/uL (4.8-10.8)
[2021-11-29] MEDS ORDERED: 0.9%NACL 1000ML 1,000 ML IV ONE (08:56)
[2021-11-29] MEDS ORDERED: PHARMACY COMMUNICATION MISC SCH (09:00)
[2021-11-29] MEDS ORDERED: VANCOMYCIN 1G 1.25 GM in 0.9% NACL 250ML 250 ML IVPB SCH (09:00)
[2021-11-29] MEDS: ASPIRIN 81MG CHEW TAB PO SCH (09:22)
[2021-11-29] MEDS: FAMOTIDINE 20MG TAB PO SCH (09:22)
[2021-11-29] MEDS: MEROPENEM 1 GM VIAL IVP SCH ×2 (09:22→20:46)
[2021-11-29] MEDS: ENOXAPARIN SODIUM 40 MG/0.4 ML SYRINGE SQ SCH (09:23)
[2021-11-29] MEDS: MAGNESIUM OXIDE 400 MG TABLET PO SCH (09:23)
[2021-11-29] MEDS: 0.9%NACL 1000ML 1,000 ML IV SCH ×3 (09:24→11:30)
[2021-11-29] MEDS ORDERED: VANCOMYCIN 1.25 GM/250 ML BAG 250 ML IV SCH (09:30)
[2021-11-29] MEDS: CLINIMIX-E 5%AA /D15%W 2000ML 2,000 ML IV SCH (09:40)
[2021-11-29] MEDS: PAROXETINE HCL 20 MG TABLET PO SCH (09:41)
[2021-11-29] MEDS ORDERED: VANCOMYCIN PROTOCOL PER PHARMACY IV SCH (10:30)
[2021-11-29 10:32] LABS: BAND NEUTROPHILS % (MANUAL) 26 % (0-2); BASOPHILS % (MANUAL) 1 % (0-2); LYMPHOCYTES % (MANUAL) 4 % (22-44); MAN.DIFF COMMENT-IMPRESSION MANUAL DIFFERENTIAL; MONOCYTES % (MANUAL) 2 % (2-9); SEGMENTED NEUTROPHILS % 67 % (40-70)
[2021-11-29 14:35] LABS: CREATININE 0.6 mg/dL (0.5-1.5)
[2021-11-29 14:37] LABS: POTASSIUM 2.7 mmol/L (3.5-5.1)
[2021-11-29] MEDS: POTASSIUM CHLORIDE 20MEQ/100ML 100 ML IV PRN ×2 (14:53→18:01)
[2021-11-29] MEDS ORDERED: POTASSIUM CHLORIDE 10% ELIXIR 20 MEQ/15 ML UDCUP PO PRN (15:00)
[2021-11-29] MEDS ORDERED: POTASSIUM CHLORIDE 20MEQ/100ML 100 ML IV PRN (15:00)
[2021-11-29] MEDS ORDERED: KCL 20 MEQ ERTAB PO PRN (15:00)
[2021-11-29] MEDS ORDERED: LIDOCAINE HCL-MPF 1% 2ML VIAL IV PRN (15:00)
[2021-11-29] MEDS: MAGNESIUM 2GM PREMIX 50ML 50 ML IV SCH (15:31)
[2021-11-29] MEDS ORDERED: NOREPINEPHRIN 8MG/250ML NS PMX 250 ML IV PRN (21:00)
[2021-11-29] MEDS ORDERED: GUAIFENESIN-DM 200/20 MG 10 ML PO PRN (22:30)
[2021-11-30] VITALS (50 sets, daily range): BP systolic 92–134; BP diastolic 39–85
[2021-11-30 04:09] LABS: BASOPHILS % (AUTO) 0.3 % (0.0-5.0); EOSINOPHILS % (AUTO) 0.6 % (0.0-8.0); HEMATOCRIT 25.9 % (36-48); LYMPHOCYTES % (AUTO) 1.9 % (21.0-51.0); MEAN CORPUSCULAR HEMOGLOBIN 33.2 pg (27.0-33.0); MEAN CORPUSCULAR VOLUME 97.7 fL (79-99); MONOCYTES % (AUTO) 4.3 % (3.0-13.0); PLATELET COUNT (AUTO) 147 K/uL (130-400); RED BLOOD CELL COUNT(AUTO) 2.65 MIL/uL (4.00-5.50); RED CELL DISTRIBUTION WIDTH 13.6 % (11.0-15.5); WHITE BLOOD COUNT (AUTO) 27.2 K/uL (4.8-10.8)
[2021-11-30 05:09] LABS: BILIRUBIN,TOTAL 1.6 mg/dL (0.2-1.0); CARBON DIOXIDE 24 mmol/L (21-32); CHLORIDE 105 mmol/L (101-111); PHOSPHORUS 2.3 mg/dL (2.5-4.9); POTASSIUM 3.8 mmol/L (3.5-5.1); SODIUM SERUM 138 mmol/L (136-145); THYROID STIMULATING HORMONE 0.01 uIU/mL (0.36-3.74); TOTAL PROTEIN, SERUM 5.6 g/dL (6.0-8.3)
[2021-11-30] MEDS ORDERED: 0.9%NACL 100ML 100 ML ONE (05:10)
[2021-11-30] MEDS: NITROGLYCERIN 1GM OINT 1 INCH/1GM TD SCH ×3 (05:14→20:18)
[2021-11-30 05:39] LABS: ALBUMIN 1.9 g/dL (3.5-5.0); ASPARTATE AMINOTRANSFERASE 267 U/L (10-37); CREATININE 0.6 mg/dL (0.5-1.5); GLOMERULAR FILTR. RATE CALC 109 mL/min (>60); GLUCOSE,RANDOM 136 mg/dL (70-105); UREA NITROGEN, BLOOD 13 mg/dL (7-18)
[2021-11-30] MEDS ORDERED: VANCOMYCIN 500MG+NS 100ML 100 ML IV SCH (06:00)
[2021-11-30 06:29] LABS: ALANINE AMINOTRANSFERASE 354 U/L (12-78)
[2021-11-30] MEDS: ENOXAPARIN SODIUM 40 MG/0.4 ML SYRINGE SQ SCH (09:17)
[2021-11-30] MEDS: ASPIRIN 81MG CHEW TAB PO SCH (09:18)
[2021-11-30] MEDS: FAMOTIDINE 20MG TAB PO SCH (09:18)
[2021-11-30] MEDS: PAROXETINE HCL 20 MG TABLET PO SCH (09:18)
[2021-11-30] MEDS: MAGNESIUM OXIDE 400 MG TABLET PO SCH (09:18)
[2021-11-30] MEDS: MEROPENEM 1 GM VIAL IVP SCH ×2 (09:18→20:18)
[2021-11-30] MEDS: POTASSIUM CHLORIDE 10% ELIXIR 20 MEQ/15 ML UDCUP PO PRN ×2 (09:19→12:23)
[2021-11-30] MEDS: MIDODRINE HCL 5 MG TABLET PO SCH ×3 (09:19→20:18)
[2021-11-30] MEDS: CLINIMIX-E 5%AA /D15%W 2000ML 2,000 ML IV SCH (09:20)
[2021-11-30] MEDS ORDERED: LEVOTHYROXINE 100MCG VIAL IV SCH (12:00)
[2021-11-30] MEDS: NYSTATIN 100000 UNIT/ML 5ML UDCUP PO SCH ×3 (12:23→20:19)
[2021-11-30] MEDS ORDERED: GADOTERATE MEGLUMINE 5 MMOL/10 ML VIAL IV ONE (12:52)
[2021-11-30] MEDS: ONDANSETRON 4MG INJ IVP PRN (13:02)
[2021-11-30] MEDS ORDERED: VANCOMYCIN 1.5 GM/250 ML BAG 250 ML IV SCH (18:00)
[2021-12-01] VITALS (24 sets, daily range): BP systolic 109–133; BP diastolic 60–100
[2021-12-01 04:06] LABS: BASOPHILS % (AUTO) 0.2 % (0.0-5.0); LYMPHOCYTES % (AUTO) 4.5 % (21.0-51.0); MEAN CORPUSCULAR HEMOGLOBIN 31.9 pg (27.0-33.0); MEAN CORPUSCULAR HGB CONC 32.9 g/dL (32.0-36.0); MEAN CORPUSCULAR VOLUME 96.8 fL (79-99); MONOCYTES % (AUTO) 4.2 % (3.0-13.0); NEUTROPHILS % (AUTO) 85.6 % (40.0-77.0); PLATELET COUNT (AUTO) 151 K/uL (130-400); RED BLOOD CELL COUNT(AUTO) 2.48 MIL/uL (4.00-5.50); RED CELL DISTRIBUTION WIDTH 13.7 % (11.0-15.5); WHITE BLOOD COUNT (AUTO) 21.6 K/uL (4.8-10.8)
[2021-12-01 04:21] LABS: ALBUMIN 1.7 g/dL (3.5-5.0); BILIRUBIN,TOTAL 0.7 mg/dL (0.2-1.0); CREATININE 0.4 mg/dL (0.5-1.5); POTASSIUM 3.8 mmol/L (3.5-5.1); TOTAL PROTEIN, SERUM 5.1 g/dL (6.0-8.3)
[2021-12-01] MEDS: VANCOMYCIN 500MG+NS 100ML 100 ML IV SCH ×2 (05:11→22:06)
[2021-12-01] MEDS: NITROGLYCERIN 1GM OINT 1 INCH/1GM TD SCH ×3 (05:12→21:36)
[2021-12-01] MEDS: LEVOTHYROXINE 100MCG VIAL IV SCH (05:44)
[2021-12-01] MEDS: PAROXETINE HCL 20 MG TABLET PO SCH (08:16)
[2021-12-01] MEDS: NYSTATIN 100000 UNIT/ML 5ML UDCUP PO SCH ×3 (08:17→21:33)
[2021-12-01] MEDS: MEROPENEM 1 GM VIAL IVP SCH ×2 (08:17→21:36)
[2021-12-01] MEDS: FAMOTIDINE 20MG TAB PO SCH (08:17)
[2021-12-01] MEDS: ENOXAPARIN SODIUM 40 MG/0.4 ML SYRINGE SQ SCH (08:17)
[2021-12-01] MEDS: ASPIRIN 81MG CHEW TAB PO SCH (08:17)
[2021-12-01] MEDS: MAGNESIUM OXIDE 400 MG TABLET PO SCH (08:17)
[2021-12-01] MEDS: MIDODRINE HCL 5 MG TABLET PO SCH ×3 (08:17→21:00)
[2021-12-01] MEDS ORDERED: EPOETIN ALFA-EPBX (NON-ESRD) 10,000 UNIT/ML VIAL SQ SCH (11:30)
[2021-12-01] MEDS ORDERED: COMPOUND IV MISC 1 EACH IVSOLN MISC PRN (12:00)
[2021-12-01] MEDS ORDERED: DEXAMETHASONE SOD PHOSPHATE 4 MG/ML 1ML VIAL IV SCH (12:00)
[2021-12-01] MEDS: IRON SUCROSE COMPLEX 400 MG in 0.9% NACL 250ML 250 ML IV SCH (12:16)
[2021-12-01] MEDS: ONDANSETRON 4MG INJ IVP PRN (14:24)
[2021-12-01 21:35] LABS: HEMATOCRIT 28.9 % (36-48)
[2021-12-01] MEDS: DEXAMETHASONE SOD PHOSPHATE 4 MG/ML 1ML VIAL IV SCH (21:49)
[2021-12-01] MEDS: NEUTRA-PHOS PACKET 1 EACH PO SCH (21:57)
[2021-12-02] VITALS (21 sets, daily range): BP systolic 104–132; BP diastolic 50–78
[2021-12-02] MEDS: VANCOMYCIN 500MG+NS 100ML 100 ML IV SCH ×2 (05:37→17:53)
[2021-12-02] MEDS: NITROGLYCERIN 1GM OINT 1 INCH/1GM TD SCH ×3 (05:54→22:00)
[2021-12-02 05:58] LABS: BASOPHILS % (AUTO) 0.3 % (0.0-5.0); EOSINOPHILS % (AUTO) 1.1 % (0.0-8.0); HEMATOCRIT 27.3 % (36-48); LYMPHOCYTES % (AUTO) 5.9 % (21.0-51.0); MEAN CORPUSCULAR HEMOGLOBIN 32.6 pg (27.0-33.0); MEAN CORPUSCULAR HGB CONC 34.1 g/dL (32.0-36.0); MEAN CORPUSCULAR VOLUME 95.8 fL (79-99); MONOCYTES % (AUTO) 1.3 % (3.0-13.0); NEUTROPHILS % (AUTO) 89.8 % (40.0-77.0); PLATELET COUNT (AUTO) 145 K/uL (130-400); RED BLOOD CELL COUNT(AUTO) 2.85 MIL/uL (4.00-5.50); RED CELL DISTRIBUTION WIDTH 13.3 % (11.0-15.5); WHITE BLOOD COUNT (AUTO) 13.4 K/uL (4.8-10.8)
[2021-12-02 06:26] LABS: ALBUMIN 1.8 g/dL (3.5-5.0); BILIRUBIN,TOTAL 0.8 mg/dL (0.2-1.0); CREATININE 0.5 mg/dL (0.5-1.5); MAGNESIUM 1.9 mg/dL (1.80-2.40); PHOSPHORUS 3.5 mg/dL (2.5-4.9); POTASSIUM 4.1 mmol/L (3.5-5.1)
[2021-12-02] MEDS: ACETAMINOPHEN 325 MG TAB PO PRN (07:54)
[2021-12-02] MEDS: ASPIRIN 81MG CHEW TAB PO SCH (09:00)
[2021-12-02] MEDS: NYSTATIN 100000 UNIT/ML 5ML UDCUP PO SCH ×4 (09:00→21:54)
[2021-12-02] MEDS: NEUTRA-PHOS PACKET 1 EACH PO SCH ×2 (09:00→12:28)
[2021-12-02] MEDS: PAROXETINE HCL 20 MG TABLET PO SCH (09:00)
[2021-12-02] MEDS: FAMOTIDINE 20MG TAB PO SCH (09:00)
[2021-12-02] MEDS: MAGNESIUM OXIDE 400 MG TABLET PO SCH (09:00)
[2021-12-02] MEDS: MIDODRINE HCL 5 MG TABLET PO SCH ×3 (09:00→21:54)
[2021-12-02] MEDS: ENOXAPARIN SODIUM 40 MG/0.4 ML SYRINGE SQ SCH (09:00)
[2021-12-02 09:08] LABS: HEMATOCRIT 27.5 % (36-48)
[2021-12-02] MEDS: MEROPENEM 1 GM VIAL IVP SCH ×2 (09:28→21:56)
[2021-12-02] MEDS: LEVOTHYROXINE 100MCG VIAL IV SCH (09:28)
[2021-12-02] MEDS: DEXAMETHASONE SOD PHOSPHATE 4 MG/ML 1ML VIAL IV SCH ×2 (09:29→21:54)
[2021-12-02] MEDS ORDERED: PROPOFOL 10 MG/ML 20ML VIAL IV ONE (11:42)
[2021-12-02] MEDS: IRON SUCROSE COMPLEX 400 MG in 0.9% NACL 250ML 250 ML IV SCH (12:47)
[2021-12-03 00:10] VITALS: BP 120/76
[2021-12-03 04:10] VITALS: BP 109/63
[2021-12-03 05:26] LABS: BASOPHILS % (AUTO) 0.5 % (0.0-5.0); HEMATOCRIT 28.8 % (36-48); LYMPHOCYTES % (AUTO) 6.6 % (21.0-51.0); MEAN CORPUSCULAR HEMOGLOBIN 33.4 pg (27.0-33.0); MEAN CORPUSCULAR HGB CONC 34.7 g/dL (32.0-36.0); MEAN CORPUSCULAR VOLUME 96.3 fL (79-99); MONOCYTES % (AUTO) 2.6 % (3.0-13.0); NEUTROPHILS % (AUTO) 84.1 % (40.0-77.0); PLATELET COUNT (AUTO) 149 K/uL (130-400); RED BLOOD CELL COUNT(AUTO) 2.99 MIL/uL (4.00-5.50); RED CELL DISTRIBUTION WIDTH 13.2 % (11.0-15.5); WHITE BLOOD COUNT (AUTO) 10.3 K/uL (4.8-10.8)
[2021-12-03 05:42] LABS: ALBUMIN 1.9 g/dL (3.5-5.0); BILIRUBIN,TOTAL 0.6 mg/dL (0.2-1.0); CREATININE 0.4 mg/dL (0.5-1.5); POTASSIUM 3.7 mmol/L (3.5-5.1); TOTAL PROTEIN, SERUM 5.1 g/dL (6.0-8.3)
[2021-12-03] MEDS: NITROGLYCERIN 1GM OINT 1 INCH/1GM TD SCH ×3 (05:43→21:33)
[2021-12-03] MEDS: VANCOMYCIN 500MG+NS 100ML 100 ML IV SCH ×2 (05:44→19:04)
[2021-12-03] MEDS: LEVOTHYROXINE 100MCG VIAL IV SCH (05:49)
[2021-12-03 07:00] VITALS: BP 115/62
[2021-12-03] MEDS: IRON SUCROSE COMPLEX 400 MG in 0.9% NACL 250ML 250 ML IV SCH ×2 (09:00→19:14)
[2021-12-03] MEDS: MEROPENEM 1 GM VIAL IVP SCH ×3 (09:00→21:33)
[2021-12-03 11:00] VITALS: BP 107/61
[2021-12-03] MEDS: DEXAMETHASONE SOD PHOSPHATE 4 MG/ML 1ML VIAL IV SCH ×2 (11:08→16:57)
[2021-12-03] MEDS: ENOXAPARIN SODIUM 40 MG/0.4 ML SYRINGE SQ SCH (11:10)
[2021-12-03 12:54] LABS: INR 1.18 (0.85-1.15); PROTHROMBIN TIME 12.7 SEC (9.6-11.6)
[2021-12-03] MEDS ORDERED: ALTEPLASE 2MG VIAL 2 MG/VIAL VIAL IVCATH SCH (15:00)
[2021-12-03 16:30] VITALS: BP 115/64
[2021-12-03] MEDS: PAROXETINE HCL 20 MG TABLET PO SCH (16:37)
[2021-12-03] MEDS: MAGNESIUM OXIDE 400 MG TABLET PO SCH (16:37)
[2021-12-03] MEDS: FAMOTIDINE 20MG TAB PO SCH (16:37)
[2021-12-03] MEDS: ASPIRIN 81MG CHEW TAB PO SCH (16:38)
[2021-12-03] MEDS: MIDODRINE HCL 5 MG TABLET PO SCH ×2 (16:45→21:32)
[2021-12-03] MEDS: NYSTATIN 100000 UNIT/ML 5ML UDCUP PO SCH ×3 (16:54→21:32)
[2021-12-03 19:00] VITALS: BP 133/73
[2021-12-04] VITALS: BP 141/76
[2021-12-04 02:41] LABS: CREATININE 0.4 mg/dL (0.5-1.5); POTASSIUM 3.3 mmol/L (3.5-5.1)
[2021-12-04] MEDS: POTASSIUM CHLORIDE 10% ELIXIR 20 MEQ/15 ML UDCUP PO PRN ×2 (03:00→21:24)
[2021-12-04 04:00] VITALS: BP 127/74
[2021-12-04 04:29] LABS: HEMATOCRIT 26.8 % (36-48); MEAN CORPUSCULAR HEMOGLOBIN 32.7 pg (27.0-33.0); MEAN CORPUSCULAR HGB CONC 33.2 g/dL (32.0-36.0); MEAN CORPUSCULAR VOLUME 98.5 fL (79-99); RED BLOOD CELL COUNT(AUTO) 2.72 MIL/uL (4.00-5.50); RED CELL DISTRIBUTION WIDTH 13.3 % (11.0-15.5)
[2021-12-04] MEDS ORDERED: 0.9% NACL 250ML 0 ML ONE (05:37)
[2021-12-04] MEDS: ACETAMINOPHEN 325 MG TAB PO PRN (05:44)
[2021-12-04] MEDS: VANCOMYCIN 500MG+NS 100ML 100 ML IV SCH (05:55)
[2021-12-04] MEDS: LEVOTHYROXINE 100MCG VIAL IV SCH (05:55)
[2021-12-04] MEDS: NITROGLYCERIN 1GM OINT 1 INCH/1GM TD SCH ×3 (06:00→20:16)
[2021-12-04 07:23] VITALS: BP 126/76
[2021-12-04] MEDS: MIDODRINE HCL 5 MG TABLET PO SCH ×3 (10:21→23:52)
[2021-12-04] MEDS: PAROXETINE HCL 20 MG TABLET PO SCH (10:22)
[2021-12-04] MEDS: MAGNESIUM OXIDE 400 MG TABLET PO SCH (10:22)
[2021-12-04] MEDS: ASPIRIN 81MG CHEW TAB PO SCH (10:22)
[2021-12-04] MEDS: FAMOTIDINE 20MG TAB PO SCH (10:22)
[2021-12-04] MEDS: DEXAMETHASONE SOD PHOSPHATE 4 MG/ML 1ML VIAL IV SCH (10:23)
[2021-12-04] MEDS: ENOXAPARIN SODIUM 40 MG/0.4 ML SYRINGE SQ SCH (10:24)
[2021-12-04] MEDS: IRON SUCROSE COMPLEX 400 MG in 0.9% NACL 250ML 250 ML IV SCH (10:24)
[2021-12-04] MEDS: NYSTATIN 100000 UNIT/ML 5ML UDCUP PO SCH ×4 (10:25→21:25)
[2021-12-04] MEDS: MEROPENEM 1 GM VIAL IVP SCH (10:25)
[2021-12-04 11:20] VITALS: BP 97/52
[2021-12-04 16:00] VITALS: BP 111/63
[2021-12-04 19:00] VITALS: BP 109/65
[2021-12-05] VITALS: BP 105/57
[2021-12-05] MEDS: POTASSIUM CHLORIDE 10% ELIXIR 20 MEQ/15 ML UDCUP PO PRN (02:51)
[2021-12-05 04:00] VITALS: BP 113/68
[2021-12-05] MEDS: NITROGLYCERIN 1GM OINT 1 INCH/1GM TD SCH ×3 (05:19→22:00)
[2021-12-05] MEDS: LEVOTHYROXINE 75 MCG TABLET PO SCH (05:45)
[2021-12-05 06:54] VITALS: BP 111/61
[2021-12-05 09:32] LABS: HEMATOCRIT 27.4 % (36-48); MEAN CORPUSCULAR HGB CONC 33.2 g/dL (32.0-36.0); MEAN CORPUSCULAR VOLUME 99.3 fL (79-99); NUCLEATED RED BLOOD CELLS 0.5 % (0.0-0.19); RED BLOOD CELL COUNT(AUTO) 2.76 MIL/uL (4.00-5.50); RED CELL DISTRIBUTION WIDTH 13.4 % (11.0-15.5); WHITE BLOOD COUNT (AUTO) 14.8 K/uL (4.8-10.8)
[2021-12-05 09:41] LABS: ALBUMIN 2.1 g/dL (3.5-5.0); CREATININE 0.4 mg/dL (0.5-1.5); POTASSIUM 4.2 mmol/L (3.5-5.1)
[2021-12-05] MEDS: DEXAMETHASONE SOD PHOSPHATE 4 MG/ML 1ML VIAL IV SCH (10:06)
[2021-12-05] MEDS: IRON SUCROSE COMPLEX 400 MG in 0.9% NACL 250ML 250 ML IV SCH (10:06)
[2021-12-05] MEDS: MAGNESIUM OXIDE 400 MG TABLET PO SCH (10:06)
[2021-12-05] MEDS: NYSTATIN 100000 UNIT/ML 5ML UDCUP PO SCH ×4 (10:07→22:05)
[2021-12-05] MEDS: MIDODRINE HCL 5 MG TABLET PO SCH ×3 (10:07→21:00)
[2021-12-05] MEDS: PAROXETINE HCL 20 MG TABLET PO SCH (10:07)
[2021-12-05] MEDS: FAMOTIDINE 20MG TAB PO SCH (10:07)
[2021-12-05] MEDS: ENOXAPARIN SODIUM 40 MG/0.4 ML SYRINGE SQ SCH (10:08)
[2021-12-05] MEDS: ASPIRIN 81MG CHEW TAB PO SCH (10:11)
[2021-12-05] MEDS: ACETAMINOPHEN 325 MG TAB PO PRN (10:12)
[2021-12-05 11:00] VITALS: BP 126/78
[2021-12-05 16:06] VITALS: BP_SYST 110; BP_SYST 117; BP_DIAS 52; BP_DIAS 67
[2021-12-05 19:00] VITALS: BP 117/71
[2021-12-06] VITALS: BP 121/78
[2021-12-06] MEDS: ONDANSETRON 4MG INJ IVP PRN ×2 (03:34→17:47)
[2021-12-06] MEDS: ACETAMINOPHEN 325 MG TAB PO PRN (03:47)
[2021-12-06 04:00] VITALS: BP 121/68
[2021-12-06] MEDS: LEVOTHYROXINE 75 MCG TABLET PO SCH (05:56)
[2021-12-06] MEDS: NITROGLYCERIN 1GM OINT 1 INCH/1GM TD SCH ×2 (05:56→14:00)
[2021-12-06 08:24] VITALS: BP 113/76
[2021-12-06] MEDS ORDERED: PREDNISONE 20 MG TABLET PO SCH (09:00)
[2021-12-06] MEDS ORDERED: PARO-37 PO (09:21)
[2021-12-06] MEDS ORDERED: MAGN200T4 PO (09:21)
[2021-12-06] MEDS ORDERED: MIDO10TA PO (09:21)
[2021-12-06] MEDS ORDERED: LEVO88CA4 PO (09:21)
[2021-12-06] MEDS ORDERED: FERR-82 PO (09:21)
[2021-12-06] MEDS ORDERED: PRED5TAB PO (09:21)
[2021-12-06] MEDS ORDERED: ASPI-1197 PO (09:21)
[2021-12-06] MEDS ORDERED: FAMO20TA8 PO (09:21)
[2021-12-06] MEDS: ENOXAPARIN SODIUM 40 MG/0.4 ML SYRINGE SQ SCH (10:51)
[2021-12-06] MEDS: MAGNESIUM OXIDE 400 MG TABLET PO SCH (10:51)
[2021-12-06] MEDS: ASPIRIN 81MG CHEW TAB PO SCH (10:51)
[2021-12-06] MEDS: PAROXETINE HCL 20 MG TABLET PO SCH (10:51)
[2021-12-06] MEDS: NYSTATIN 100000 UNIT/ML 5ML UDCUP PO SCH ×3 (10:51→17:00)
[2021-12-06] MEDS: MIDODRINE HCL 5 MG TABLET PO SCH ×2 (10:51→14:00)
[2021-12-06] MEDS: FAMOTIDINE 20MG TAB PO SCH (10:51)
[2021-12-06] MEDS: IRON SUCROSE COMPLEX 400 MG in 0.9% NACL 250ML 250 ML IV SCH (10:52)
[2021-12-06 11:54] LABS: HEMATOCRIT 25.8 % (36-48); MEAN CORPUSCULAR HEMOGLOBIN 33.5 pg (27.0-33.0); MEAN CORPUSCULAR HGB CONC 33.7 g/dL (32.0-36.0); MEAN CORPUSCULAR VOLUME 99.2 fL (79-99); NUCLEATED RED BLOOD CELLS 0.3 % (0.0-0.19); RED BLOOD CELL COUNT(AUTO) 2.6 MIL/uL (4.00-5.50); RED CELL DISTRIBUTION WIDTH 13.5 % (11.0-15.5); WHITE BLOOD COUNT (AUTO) 15.5 K/uL (4.8-10.8)
[2021-12-06 12:08] LABS: CREATININE 0.4 mg/dL (0.5-1.5); POTASSIUM 3.3 mmol/L (3.5-5.1)
[2021-12-06 13:13] VITALS: BP 135/75
[2021-12-06 17:09] VITALS: BP 122/72
== END 2021-12-06 18:24 | disposition home or self-care (01) | DRG 31 ==
LOC: EDH 07:47 → EDHIP 17:23 → 3CH 22:21 → 2BH 11-29 08:22 → 2CH 12-01 06:21 → 3AH 12-01 15:20
PROVIDERS: ADMIT Hospitalist; ATTEND Hospitalist
PROC: 009U3ZX Drainage of Spinal Canal, Percutaneous Approach, Diagnostic (ICD-10-PCS; principal; 2021-11-13)
PROC: 00160J6 Bypass Cerebral Ventricle to Peritoneal Cavity with Synthetic Substitute, Open Approach (ICD-10-PCS; 2021-11-26)
PROC: 0DH63UZ Insertion of Feeding Device into Stomach, Percutaneous Approach (ICD-10-PCS; 2021-12-02)
PROC: 02HV33Z Insertion of Infusion Device into Superior Vena Cava, Percutaneous Approach (ICD-10-PCS; 2021-12-03)
DX: G91.2 (Idiopathic) normal pressure hydrocephalus (principal); G93.41 Metabolic encephalopathy; E43 Unspecified severe protein-calorie malnutrition; R65.21 Severe sepsis with septic shock; A41.9 Sepsis, unspecified organism; E87.1 Hypo-osmolality and hyponatremia; Z68.1 Body mass index [BMI] 19.9 or less, adult; D61.818 Other pancytopenia; E51.9 Thiamine deficiency, unspecified; E87.6 Hypokalemia; E83.42 Hypomagnesemia; E03.9 Hypothyroidism, unspecified; E03.8 Other specified hypothyroidism; E86.0 Dehydration; Z20.822 Contact with and (suspected) exposure to COVID-19; D51.9 Vitamin B12 deficiency anemia, unspecified; E11.9 Type 2 diabetes mellitus without complications; E87.8 Other disorders of electrolyte and fluid balance, not elsewhere classified; F41.9 Anxiety disorder, unspecified; G91.0 Communicating hydrocephalus; K76.89 Other specified diseases of liver; Z90.49 Acquired absence of other specified parts of digestive tract; Z82.49 Family history of ischemic heart disease and other diseases of the circulatory system; Z83.3 Family history of diabetes mellitus
CPT/HCPCS: 36415; 43246; 70450; 70553; 71045; 71260; 72156; 74176; 74177; 74183; 76700; 77002; 78630; 80048; 80053; 80061; 80202; 80305; 80400; 81001; 82040; 82105; 82140; 82306; 82378; 82525; 82533; 82550; 82607; 82728; 82746; 82945; 82948; 83036; 83090; 83540; 83550; 83605; 83735; 83880; 83921; 83930; 83935; 84100; 84132; 84145; 84157; 84425; 84439; 84443; 84481; 84484; 84630; 85014; 85018; 85025; 85027; 85045; 85610; 85651; 85730; 86038; 86148; 86160; 86200; 86215; 86235; 86255; 86277; 86316; 86334; 86340; 86431; 86694; 86701; 86735; 86765; 86787; 86788; 87040; 87071; 87088; 87147; 87205; 87390; 87635; 89051; 92610; 93005; 93306; 93356; 99291; A4606; A9548; C1894; G0378; J0690; J1100; J1650; J1756; J2185; J2250; J2405; J2704; J2997; J3010; J3260; J3370; J3411; J3475; J3480; J3490; J7030; J7050; J7120; P9045; Q0167; Q9967